=== PATIENT | male | born 1995 ===

== ENCOUNTER 2022-11-22 12:45 | Outpatient (RCR) | payer BC, SELFPAY ==
[2022-11-05 11:30] VITALS: BP 132/78; PULSE 60; TEMP 36.9
[2022-11-05 11:35] VITALS: BMI 32.8
--- NOTE | 2022-11-05 12:10 | PC.ADMIT ---
Patient is a 27 year old male who was referred to PHP by [facility] crisis and patient's PCP d/t increased sxs of depression with passive SI and anxiety. Patient feeling overwhelmed and stated he told his friends he was having suicidal thoughts. Patient spend the night in the ER as a result. Patient unable to identify a trigger to his symptoms. He is taking a leave of absence from work to work on his mental health. Reports he works at [employer] for the past 3.5 years. Patient is alert and oriented x4. Calm and cooperative. Presented with depressed mood and affect. Reports passive SI. Patient given a copy of his safety plan if needed. Medications reconciled with patient and patient's pharmacy. Patient taking medications as prescribed. Patient is not on any psychiatric medications at this time. He does not have a therapist of prescriber.
[2022-11-05 13:29] LABS: Amphetamine Screen Urine Not Detected (Not Detect); Barbiturates, Urine Not Detected (Not Detect); Benzodiazepines Screen Urine Not Detected (Not Detect); Cannabinoid Screen Urine POSITIVE (Not Detect); Cocaine Screen Urine Not Detected (Not Detect); Fentanyl, urine Not Detected (Not Detect); Opiate Screen Urine Not Detected (Not Detect); Phencyclidine Screen Urine Not Detected (Not Detect)
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
--- NOTE | 2022-11-07 15:21 | HO.PHPIOP ---
Case opened in tx team
--- NOTE | 2022-11-12 10:28 | HO.PHPPROGNO ---
Subjective Subjective Date of Service: 11/12/22 Reason For Visit: depression Medical Problems Affecting Mental Status: No Interim History: Describes mood as okay . Continues with depression, anxiety, although beginning to lessen. Started buspar on Friday. No SI, no safety concerns. Finding groups helpful. Medication Compliance: Intermittent (did not start buspar until Friday) Side effects from medications: No Attending Groups: Yes Review of Systems Acute medical concerns: No Medical Review of Systems: unchanged Review of Systems Review of Systems Yes all other systems are reviewed and are negative Constitutional: Reports no additional constitutional complaints Mental Status Exam Mental Status Exam Narrative: NAD Patient Appearance: Appropriate Patient Orientation: Person, Place, Time and Situation Level of Consciousness: Appropriate and Alert Patient Behavior: Appropriate, Cooperative and Good Eye Contact Mood Description: Depressed (says improving) and Anxious (says improving) Affect Description: Depressed (less so) and Anxious (less so) Ability to Follow Directions: Good Speech Pattern: Clear and Appropriate Memory Description: Intact Hallucinations: None Delusions: Not Present Thought Process: Intact Depressive Symptoms: Increased Anxiety, Changes in Appetite, Loss of Int. in Activity, Thoughts of /Suicide and Low Self Esteem Judgement: Fair Diagnostics Vital Signs (24Hr): BMI result Body Mass Index 32.8 Assessment & Plan Assessment & Plan (1) Major depressive disorder, recurrent, moderate: Status: Acute Code(s): F33.1 - Major depressive disorder, recurrent, moderate Assessment and Plan: Continues with some depressed mood, anxiety, although beginning to improve. No SI at this time, either active or passive, no safety concerns. Would like to work with a therapist. Finding groups helpful in program. Request medication to help with anxiety at this time. We discussed medications in detail, including hydroxyzine, risks, benefits, alternatives to use, side effects. He is willing to trial this at this time. (2) Generalized anxiety disorder: Status: Acute Code(s): F41.1 - Generalized anxiety disorder Plan 1. Continue with current [facility] plan of care. 2. And hydroxyzine 25 mg 4 times daily p.r.n./anxiety. 3. Continue with other medications as currently prescribed. 4. Follow-up as per protocol. Patient educated on: diagnosis, medication risk/benefits and therapeutic strategies Informed Consent: understands Reason for contiued partial hosp. stay Substantial Risk for: inability to function and rapid decompensation Certification I certify that partial hospital treatment is medically necessary due to the symptoms and problems resulting from the patient's mental illness and the failure to treat the patient at the partial hospital level of care would likely result in the patient requiring inpatient psychiatric care which could not be prevented at a less intensive level of care. Total time managing care of this patient today ___20_ minutes. Discharge Plan Discharge Attending provider: James Barrios Medications: New buspirone 10 mg tablet 10 mg PO BID Qty: 14 0RF hydroxyzine HCl 25 mg tablet 25 mg PO QID PRN (Reason: anxiety) Qty: 30 0RF No Action losartan 50 mg Tablet 50 mg PO DAILY escitalopram oxalate [Lexapro] 20 mg Tablet 20 mg PO DAILY Stand Alone Forms: Patient Portal Discharge page Patient Education: Buspirone (By mouth)
--- NOTE | 2022-11-14 08:36 | HO.PHPIOP ---
Sent referral to [facility]
--- NOTE | 2022-11-19 10:28 | P.PNPSP_ITS ---
Subjective Subjective Date of Service: 11/19/22 Reason For Visit: depression Medical Problems Affecting Mental Status: No Interim History: Continues with depressed, anxious mood and affect. Tearful at times. Catastrophizing. Passive SI, no plans or intent. Feels safe. Sleep and appetite good Medication Compliance: Yes Side effects from medications: No Attending Groups: Yes Review of Systems Acute medical concerns: No Medical Review of Systems: unchanged Review of Systems Review of Systems Yes all other systems are reviewed and are negative Constitutional: Reports no additional constitutional complaints Mental Status Exam Mental Status Exam Narrative: NAD Patient Appearance: Appropriate Patient Orientation: Person, Place, Time and Situation Level of Consciousness: Appropriate and Alert Patient Behavior: Appropriate, Cooperative and Good Eye Contact Mood Description: Depressed and Anxious Affect Description: Depressed and Anxious Ability to Follow Directions: Good Speech Pattern: Clear and Appropriate Memory Description: Intact Hallucinations: None Delusions: Not Present Thought Process: Intact and Rumination Thought Content: positive for Suicidal Ideation (Passive, no intent or plan.) Depressive Symptoms: Increased Anxiety, Changes in Appetite, Loss of Int. in Activity, Thoughts of /Suicide and Low Self Esteem Judgement: Fair Diagnostics Vital Signs (24Hr): BMI result Body Mass Index 32.8 Assessment & Plan Assessment & Plan (1) Major depressive disorder, recurrent, moderate: Status: Acute Code(s): F33.1 - Major depressive disorder, recurrent, moderate Assessment and Plan: Continues with depressed and anxious mood, affect. Tearful during encounter. Went to a friend's green party Friday evening, states he had to leave after 2 hours. Catastrophizing, states that he needs to end his friendship with all of his friends because he does not want them to see him depressed. Coping skills reviewed. Passive SI, no intent or plan at this time. Reports that he feels safe. Discussed medication options, such as increasing Lexapro dose or trialing different SSRI at this time. Possibly trialing Wellbutrin. He was open to stopping Lexapro and trying sertraline. Also discussed increasing BuSpar dose. Discussion involved side effects both small and more serious, benefits, intended use, alternatives to treatment. (2) Generalized anxiety disorder: Status: Acute Code(s): F41.1 - Generalized anxiety disorder Plan 1. Increase buspar to 15mg BID. 2. Discontinue lexapro. 3. Start zoloft 100mg daily. 4. Follow-up as per protocol. Patient educated on: diagnosis, medication risk/benefits and therapeutic strategies Informed Consent: understands Reason for contiued partial hosp. stay Substantial Risk for: harm to self, inability to function and rapid decompensation Certification I certify that partial hospital treatment is medically necessary due to the symptoms and problems resulting from the patient's mental illness and the failure to treat the patient at the partial hospital level of care would likely result in the patient requiring inpatient psychiatric care which could not be prevented at a less intensive level of care. Total time managing care of this patient today ___20_ minutes. Discharge Plan Discharge Attending provider: James Barrios Medications: New hydroxyzine HCl 25 mg tablet 25 mg PO QID PRN (Reason: anxiety) Qty: 30 0RF sertraline 100 mg tablet 100 mg PO DAILY Qty: 30 0RF buspirone 15 mg tablet 15 mg PO BID Qty: 60 0RF Discontinued escitalopram oxalate [Lexapro] 20 mg Tablet 20 mg PO DAILY No Action losartan 50 mg Tablet 50 mg PO DAILY Stand Alone Forms: Patient Portal Discharge page Patient Education: Buspirone (By mouth)
--- NOTE | 2022-11-20 15:18 | HO.PHPIOP ---
I meet withsandee Tian to discuss his severely depressed presentation and to assess for needs. We discussed if inpatient admission is necessary at this time. He states that he is safe and he doesn't believe inpatient would help. We discussed staying here longer and my making a referral to a therapist and prescriber. He states that he will be safe and will be here tomorrow
--- NOTE | 2022-11-22 10:26 | P.PNPSP_ITS ---
Subjective Subjective Date of Service: 11/22/22 Reason For Visit: depression Medical Problems Affecting Mental Status: No Interim History: Describes mood as ?pretty good?. States the adjustments to his medications are working well. Now taking sertraline 100 mg daily, BuSpar 15 mg b.i.d.. No SI/HI, no safety concerns. Has therapy intake appointment scheduled for 12/03/2022. Request return to work note for 11/26/2022. Medication Compliance: Yes Side effects from medications: Yes (Some mild dizziness related to BuSpar.) Attending Groups: Yes Review of Systems Acute medical concerns: No Medical Review of Systems: unchanged Review of Systems Review of Systems Mild dizziness related to medication recent increase. Yes all other systems are reviewed and are negative Constitutional: Reports no additional constitutional complaints Mental Status Exam Mental Status Exam Narrative: NAD Patient Appearance: Appropriate Patient Orientation: Person, Place, Time and Situation Level of Consciousness: Appropriate and Alert Patient Behavior: Appropriate, Cooperative and Good Eye Contact Mood Description: Appropriate Affect Description: Appropriate Ability to Follow Directions: Excellent Speech Pattern: Clear and Appropriate Memory Description: Intact Hallucinations: None Delusions: Not Present Thought Process: Intact Judgement: Good Diagnostics Vital Signs (24Hr): BMI result Body Mass Index 32.8 Assessment & Plan Assessment & Plan (1) Major depressive disorder, recurrent, moderate: Status: Acute Code(s): F33.1 - Major depressive disorder, recurrent, moderate Assessment and Plan: Patient describes mood as ?pretty good ?today. Happy with recent medication adjustments. Discussed side effect of BuSpar. Recommended he trial breaking tabs and taking 10 mg t.i.d. rather than 15 b.i.d.. He stated he would try this. Overall feeling better, feels ready to resume working next week after holiday. No SI/HI, no safety concerns. He has numbers for several outpatient providers. He has a therapy intake scheduled in November. Per patient, his primary care provider has agreed to bridge psych meds until his new prescriber appointment. (2) Generalized anxiety disorder: Status: Acute Code(s): F41.1 - Generalized anxiety disorder Plan 1. Patient appears stable for discharge from [facility] at this time. 2. Patient to follow-up with outpatient providers going forward. Patient educated on: diagnosis, medication risk/benefits and therapeutic strategies Informed Consent: understands Reason for contiued partial hosp. stay Substantial Risk for: stable for discharge Certification I certify that partial hospital treatment is medically necessary due to the symptoms and problems resulting from the patient's mental illness and the failure to treat the patient at the partial hospital level of care would likely result in the patient requiring inpatient psychiatric care which could not be prevented at a less intensive level of care. Total time managing care of this patient today _20___ minutes. Discharge Plan Discharge Attending provider: James Barrios Medications: New hydroxyzine HCl 25 mg tablet 25 mg PO QID PRN (Reason: anxiety) Qty: 30 0RF sertraline 100 mg tablet 100 mg PO DAILY Qty: 30 0RF buspirone 15 mg tablet 15 mg PO BID Qty: 60 0RF Discontinued escitalopram oxalate [Lexapro] 20 mg Tablet 20 mg PO DAILY No Action losartan 50 mg Tablet 50 mg PO DAILY Stand Alone Forms: Patient Portal Discharge page Patient Education: Buspirone (By mouth), Depression (ED), Depression (GEN), Generalized Anxiety Disorder (GEN), Anxiety (GEN)
--- NOTE | 2022-11-26 12:25 | PC.NURSE ---
Patient discharged from [facility] on 11/22/2022. Routine discharge. Patient states ready for discharge, denies SI with no plan or intent. Denies HI with no plan or intent. Patient met with [facility] today for management of discharge medications. Discharge plan faxed to PCP with written consent obtained from patient. Patient states understanding of dischare plan.
--- NOTE | 2022-11-26 14:30 | HO.PHPIOP ---
I made a referral to the [facility] counseling for the client to see Randa Salas [facility] . His appointment is 12/03/22. I also left a message directly with Mel voice mail. He will be put on a short wait list for the medication prescriber.
== END 2022-11-22 23:59 | disposition home or self-care (01) ==
LOC: HO.PHPA 12:45
PROVIDERS: Nurse Practitioner Psychiatric/Mental Health; Visit Provider Psychiatry & Neurology Psychiatry
DX: F33.1 Major depressive disorder, recurrent, moderate (principal); F41.1 Generalized anxiety disorder; Z79.899 Other long term (current) drug therapy
CPT/HCPCS: 80307; 90791; 90853